=== PATIENT | female | born 1980 | race Caucasian/White ===

== ENCOUNTER → 2020-07-04 | Outpatient (CLI) | payer BC ==
[~2020-07-04] MED LIST: BAMLANIVIMAB (NON FORM) 700 MG in NS (IVPB) 250 ML IV ONE; BLACK CURRENT SEED PO; CALCIUM LACTATE PO; D50KC PO; EPIN0.3P3 IM; EPINEPHrine INJECTION 1 MG/ML AMP IM PRN; FLUC200T PO; IBP200T; LACT1CAP66 PO; METR500T PO; Oseltamivir Phosphate PO; PRD20T PO; SULF1TAB7; VITAMIN B-6 PO; [UNRECOGNIZED DRUG - OTHER] PO; [UNRECOGNIZED DRUG - OTHER] PO; [UNRECOGNIZED DRUG - OTHER] PO; [UNRECOGNIZED DRUG - OTHER] PO; [UNRECOGNIZED DRUG - OTHER] PO; [UNRECOGNIZED DRUG - OTHER] PO; [UNRECOGNIZED DRUG - OTHER] PO; diphenhydrAMINE 50 MG/ML INJ (BENADRYL) IV PRN
[2020-07-04 09:11] VITALS: BP 103/67
[2020-07-04 09:50] VITALS: BP 98/63
== END ==
LOC: INFUSION 08:20
PROVIDERS: ATTEND Nurse Practitioner Family
DX: U07.1 COVID-19 (principal)

== ENCOUNTER → 2020-08-18 | Outpatient (CLI) | payer BC ==
[~2020-08-18] MED LIST changes: -BAMLANIVIMAB (NON FORM) 700 MG in NS (IVPB) 250 ML IV ONE; -EPINEPHrine INJECTION 1 MG/ML AMP IM PRN; -diphenhydrAMINE 50 MG/ML INJ (BENADRYL) IV PRN
--- NOTE | 2020-08-18 13:03 | Diagnostic Imaging Report ---
INDICATION: Palpable lump left breast. COMPARISON: No prior studies are available for comparison. TECHNIQUE: 2D and 3D bilateral diagnostic mammography was performed with CAD. FINDINGS: Both breasts are heterogeneously dense, limiting the sensitivity of mammography. A BB marker was placed at the area of palpable abnormality in the upper outer left breast. No mass is identified. No malignant appearing microcalcifications are seen. The axillae are unremarkable. IMPRESSION: No mammographic features suspicious for malignancy are identified. Even so, directed sonographic interrogation of the area of palpable abnormality in the upper outer left breast is recommended and will be performed today. ACR BI-RADS Category 0: Incomplete. (Needs additional imaging evaluation). Result letter will be mailed to the patient. Note: At least 10% of breast cancer is not imaged by mammography. Dictated by: Dictated on workstation # [id number]
--- NOTE | 2020-08-18 15:43 | Diagnostic Imaging Report ---
INDICATION: Left breast pain and palpable lump. CORRELATION is made with diagnostic mammogram earlier same date. Sonographic interrogation of upper outer left breast was performed. At the 2:00 location, 5 cm from the nipple, there is a cyst measuring 7 mm x 4 mm x 7 mm. At the 3:00 location, 2 cm from the nipple, there is a 4 mm x 7 mm cyst. No solid masses are seen. IMPRESSION: BI-RADS Category 2. Left breast cyst, likely accounting for the palpable abnormality ACR BI-RADS Category 2: Benign findings. Result letter will be mailed to the patient. Note: At least 10% of breast cancer is not imaged by mammography. Dictated by: Dictated on workstation # [id number]
== END ==
LOC: RAD 12:26
PROVIDERS: ATTEND Nurse Practitioner Family
DX: N60.02 Solitary cyst of left breast (principal)
CPT/HCPCS: 76642; 77066; G0279; 77062

== ENCOUNTER → 2020-10-27 | Outpatient (CLI) | payer BC | LOC: CARD 10:00 | PROVIDERS: ATTEND Nurse Practitioner Family | DX: R01.1 Cardiac murmur, unspecified (principal) | CPT/HCPCS: 93306 ==

== ENCOUNTER → 2021-12-18 | Outpatient (CLI) | payer BC ==
[~2021-12-18] VITALS: Ht 172 cm; Wt 52.0 kg
[~2021-12-18] MED LIST changes: +CATHETER FLUSH 10 ML SYR IVP PRN
[2021-12-18 08:05] VITALS: BP 128/81
--- NOTE | 2021-12-18 17:47 | STRESS TEST ---
DATE OF SERVICE: 12/18/2021 RESTING AND POST EXERCISE TECHNETIUM-99M TETROFOSMIN SPECT CT IMAGING ORDERING PHYSICIAN: MARIA ISABEL Scott. CLINICAL DIAGNOSIS: Shortness of breath. Baseline images were carried out after injection of 10.29 mCi of technetium-99m Tetrofosmin. Exercise was then performed on a treadmill under Dr. Desai's supervision and this part of the study is reported separately by him. After the patient had achieved more than her target heart rate, 29.7 mCi of technetium-99m Tetrofosmin were injected. Review of images at rest and following stress does not indicate any significant perfusion defects consistent with significant myocardial ischemia or infarction. Gated images show normal global left ventricular systolic function with normal regional wall motion. Left ventricular ejection fraction is calculated to be 55%. CONCLUSIONS: 1. No evidence of any significant myocardial ischemia or infarction on this study. 2. Normal regional wall motion. 3. Normal global left ventricular systolic function with a calculated ejection fraction of 65%. Job ID: [id number] DocumentID: [id number] Dictated Date: 12/18/2021 10:24:02 Aircraft Structural [employer] Date: 12/18/2021 15:40:54 Dictated By: YESSI PATTERSON MD, MA, FACP, FACC,
== END ==
LOC: CARD 06:39
PROVIDERS: ATTEND Nurse Practitioner Family
DX: I95.1 Orthostatic hypotension (principal)
CPT/HCPCS: 78452; 93017; A9502

== ENCOUNTER → 2022-02-01 | Outpatient (CLI) | payer BC ==
[~2022-02-01] MED LIST changes: -CATHETER FLUSH 10 ML SYR IVP PRN; +RT-ALBUTEROL SULF 2.5 MG/3 ML PRE-MIX VIAL INH ONE
== END ==
LOC: RT 15:14
PROVIDERS: ATTEND Nurse Practitioner Family
DX: R06.09 Other forms of dyspnea (principal); R94.2 Abnormal results of pulmonary function studies
CPT/HCPCS: 94060; 94726; 94729